=== PATIENT | male | born 1960 | race Caucasian/White ===

== ENCOUNTER 2017-04-03 16:57 | Inpatient (IN) | payer OTHER ==
[~2017-04-03] VITALS: Ht 175.3 cm; Wt 62.0 kg
[2017-04-03] MEDS ORDERED: ALBUT/IPRATROP 3MG/0.5MG NEB 3 ML VIAL INH ONE (17:15)
[2017-04-03 17:24] VITALS: PULSE 102; O2SAT 93
[2017-04-03 17:36] LABS: BASO % 0.1 %; BASO ABS # 0.01 K/uL (0-0.2); COMPLETE YES; EOS % 0.6 %; HEMATOCRIT 43.7 % (42-52); IG% 0.2 %; LYMPH % 4.4 %; LYMPH ABS # 0.38 K/uL (1.2-3.4); MEAN CELL VOLUME 89.5 fL (80-100); MEAN CORPUSCULAR HEMOGLOBIN 30.5 pg (25-34); MEAN CORPUSCULAR HGB CONC 34.1 g/dl (32-36); MEAN PLATELET VOLUME 9.2 fL (7.4-10.4); NEUT % 93.7 %; PLATELET COUNT 214 K/uL (130-400); RED BLOOD COUNT 4.88 M/uL (4.7-6.1); WHITE BLOOD COUNT 8.61 K/uL (4.8-10.8)
[2017-04-03] MEDS ORDERED: CICL160A INH (17:42)
[2017-04-03] MEDS ORDERED: SERT-234 PO (17:43)
[2017-04-03] MEDS ORDERED: VNTHFA/IN INH (17:48)
--- NOTE | 2017-04-03 17:49 | DIAGNOSTIC IMAGING REPORT ---
CHEST ONE VIEW PORTABLE HISTORY: 57 years-old Male EVALUATE RESPIRATORY DISTRESS.DYSPNEA acute respiratory distress COMPARISON: None available TECHNIQUE: AP view of the chest FINDINGS: Cardiac mediastinal and hilar silhouettes are within normal limits. No pneumothorax, pleural effusion, focal airspace consolidation or overt pulmonary edema. Mild biapical pleural-parenchymal scarring. Degenerative changes are seen within the shoulders and spine. IMPRESSION: No acute cardiopulmonary process. The above report was generated using voice recognition software. It may contain grammatical, syntax or spelling errors. Electronically signed by: Pramod Cherry M.D. 04/03/2017 5:48 PM Dictated Date/Time: 04/03/2017 5:47 PM
[2017-04-03 17:54] LABS: BUN/CREATININE RATIO 9.5 (10-20); CALCIUM 8.8 mg/dl (8.5-10.1); CREATININE 1.26 mg/dl (0.60-1.40); POTASSIUM 3.4 mmol/L (3.5-5.1)
[2017-04-03 17:57] LABS: ALB/GLOB RATIO 0.9 (0.9-2)
[2017-04-03] MEDS ORDERED: ALBUTEROL 0.083% NEBU SOLN 3 ML VIAL INH STA (19:35)
[2017-04-03] MEDS ORDERED: AZITHROMYCIN 250 MG TAB PO STA (19:39)
[2017-04-03] MEDS ORDERED: MAGNESIUM HYDROXIDE SUSP 30 ML UDC PO PRN (20:00)
[2017-04-03] MEDS ORDERED: ALBUTEROL HFA 8 GM INHALER INH PRN (20:00)
[2017-04-03] MEDS ORDERED: ACETAMINOPHEN 325 MG TAB PO PRN (20:00)
[2017-04-03] MEDS: ALBUT/IPRATROP 3MG/0.5MG NEB 3 ML VIAL INH SCH (20:00)
[2017-04-03] MEDS ORDERED: ALUMINUM/MAGNESIUM/SIMETH (MAALOX MAX) 30 ML UDC PO PRN (20:00)
[2017-04-03] MEDS ORDERED: ONDANSETRON INJ 2 MG/ML 2 ML VIAL IV PRN (20:00)
[2017-04-03] MEDS ORDERED: AZITHROMYCIN IV 500 MG in DEXTROSE 5% 250ML 250 ML IV ONE (20:00)
[2017-04-03] MEDS ORDERED: POLYETHYLENE (MIRALAX) 17 GM PACK PO PRN (20:00)
--- NOTE | 2017-04-03 20:01 | EMERGENCY ROOM VISIT NOTE ---
History Report prepared by Patricia: Jcarlos Perez Under the Supervision of: Dr. Charli Dunham D.O. First contact with patient: 17:06 Chief Complaint: SHORTNESS OF BREATH Stated Complaint: DIFF. BREATHING / [facility] History of Present Illness The patient is a 57 year old male who presents to the Emergency Room with complaints of constant shortness of breath for the past two days. The patient states that he got a cold two days ago, and he has a runny nose, an unproductive cough, and some chest pain from the coughing. He has a history of asthma, and he is not currently on any steroids. He denies any recent antibiotic use, history of blood clots, and any recent surgery. He is not a smoker. The patient states that he was given Solu-Medrol IV and 2 nebulizers prior to arrival. Pt denies headache, change in vision, fevers, chest pain, nausea, vomiting, diarrhea, pain with urination, and melena. Source of History: patient Onset: two days ago Position: other (global) Quality: other (shortness of breath) Timing: constant Associated Symptoms: + cough, + chest pain Note: Associated symptoms: Runny nose Review of Systems See HPI for pertinent positives & negatives. A total of 10 systems reviewed and were otherwise negative. Past Medical & Surgical Medical Problems: (1) Acute respiratory failure with hypoxia (2) Asthma (3) Asthma exacerbation Social History Smoking Status: Never Smoker Marital Status: single Housing Status: other (long-term) Occupation Status: other (prisoner) Current/Historical Medications Scheduled Ciclesonide (Alvesco), 1 PUFF INH BID Sertraline (Zoloft), 200 MG PO DAILY Scheduled PRN Albuterol Hfa (Ventolin Hfa), 2 PUFFS INH QID PRN for SOB/Wheezing Allergies Coded Allergies: Amoxicillin (Verified Allergy, Unknown, UNKNOWN, 04/03/17) Morphine (Verified Allergy, Unknown, UNKNOWN, 04/03/17) Uncoded Allergies: DEMEROL (Allergy, Unknown, UNKNOWN, 04/03/17) PENICILLIN (Allergy, Unknown, UNKNOWN, 04/03/17) Physical Exam Vital Signs Date Time Temp Pulse Resp B/P (MAP) Pulse Ox O2 Delivery O2 Flow Rate FiO2 04/03/17 18:45 Nasal Cannula 2.0 04/03/17 18:43 88 Room Air 04/03/17 18:25 125 20 110/65 94 Room Air 04/03/17 17:36 105 95 Nebulizer 10.0 04/03/17 17:35 88 Nebulizer 04/03/17 17:24 102 18 93 Room Air 04/03/17 17:22 Nebulizer 04/03/17 17:07 108 04/03/17 17:06 36.9 101 22 100/63 93 Room Air Physical Exam GENERAL: Sitting up in bed, dyspneic on conversation EYE EXAM: normal conjunctiva. OROPHARYNX: no exudate, no erythema, lips, buccal mucosa, and tongue normal and mucous membranes are moist NECK: supple, no nuchal rigidity, no adenopathy, non-tender LUNGS: Diffuse wheezing bilaterally. Normal chest wall mechanics HEART: no murmurs, S1 normal and S2 normal ABDOMEN: abdomen soft, non-tender, normo-active bowel sounds, no masses, no rebound or guarding. BACK: Back is symmetrical on inspection and there is no deformity, no midline tenderness, no CVA tenderness. SKIN: no rashes and no bruising UPPER EXTREMITIES: upper extremities are grossly normal. LOWER EXTREMITIES: No pitting edema. NEURO EXAM: Normal sensorium, cranial nerves II-XII grossly intact, normal speech, no gross weakness of arms, no gross weakness of legs. Gross sensation intact. Medical Decision & Procedures ER Provider Diagnostic Interpretation: Radiology results as stated below per my review and the radiologist's interpretation: CHEST ONE VIEW PORTABLE HISTORY: 57 years-old Male EVALUATE RESPIRATORY DISTRESS.DYSPNEA acute respiratory distress COMPARISON: None available TECHNIQUE: AP view of the chest FINDINGS: Cardiac mediastinal and hilar silhouettes are within normal limits. No pneumothorax, pleural effusion, focal airspace consolidation or overt pulmonary edema. Mild biapical pleural-parenchymal scarring. Degenerative changes are seen within the shoulders and spine. IMPRESSION: No acute cardiopulmonary process. The above report was generated using voice recognition software. It may contain grammatical, syntax or spelling errors. Electronically signed by: Pramod Cherry M.D. 04/03/2017 5:48 PM Dictated Date/Time: 04/03/2017 5:47 PM Laboratory Results 04/03/17 17:18 Red Blood Count 4.88, Mean Corpuscular Volume 89.5, Mean Corpuscular Hemoglobin 30.5, Mean Corpuscular Hemoglobin Concent 34.1, Mean Platelet Volume 9.2, Neutrophils (%) (Auto) 93.7, Lymphocytes (%) (Auto) 4.4, Monocytes (%) (Auto) 1.0, Eosinophils (%) (Auto) 0.6, Basophils (%) (Auto) 0.1, Neutrophils # (Auto) 8.06, Lymphocytes # (Auto) 0.38, Monocytes # (Auto) 0.09, Eosinophils # (Auto) 0.05, Basophils # (Auto) 0.01 04/03/17 17:18 Test 04/03/17 17:18 04/03/17 19:55 White Blood Count 8.61 K/uL (4.8-10.8) Red Blood Count 4.88 M/uL (4.7-6.1) Hemoglobin 14.9 g/dL (14.0-18.0) Hematocrit 43.7 % (42-52) Mean Corpuscular Volume 89.5 fL (80-100) Mean Corpuscular Hemoglobin 30.5 pg (25-34) Mean Corpuscular Hemoglobin Concent 34.1 g/dl (32-36) Platelet Count 214 K/uL (130-400) Mean Platelet Volume 9.2 fL (7.4-10.4) Neutrophils (%) (Auto) 93.7 % Lymphocytes (%) (Auto) 4.4 % Monocytes (%) (Auto) 1.0 % Eosinophils (%) (Auto) 0.6 % Basophils (%) (Auto) 0.1 % Neutrophils # (Auto) 8.06 K/uL (1.4-6.5) Lymphocytes # (Auto) 0.38 K/uL (1.2-3.4) Monocytes # (Auto) 0.09 K/uL (0.11-0.59) Eosinophils # (Auto) 0.05 K/uL (0-0.5) Basophils # (Auto) 0.01 K/uL (0-0.2) RDW Standard Deviation 41.9 fL (36.4-46.3) RDW Coefficient of Variation 12.9 % (11.5-14.5) Immature Granulocyte % (Auto) 0.2 % Immature Granulocyte # (Auto) 0.02 K/uL (0.00-0.02) Anion Gap 9.0 mmol/L (3-11) Est Creatinine Clear Calc Drug Dose 58.1 ml/min Estimated GFR () 73.9 Estimated GFR (Non- 63.8 BUN/Creatinine Ratio 9.5 (10-20) Calcium Level 8.8 mg/dl (8.5-10.1) Total Bilirubin 0.5 mg/dl (0.2-1) Aspartate Amino Transf (AST/SGOT) 14 U/L (15-37) Alanine Aminotransferase (ALT/SGPT) 19 U/L (12-78) Alkaline Phosphatase 98 U/L (45-117) Total Protein 8.0 gm/dl (6.4-8.2) Albumin 3.7 gm/dl (3.4-5.0) Globulin 4.3 gm/dl (2.5-4.0) Albumin/Globulin Ratio 0.9 (0.9-2) Laboratory results per my review. Medications Administered Medications (Trade) Dose Ordered Sig/Dalton Route Start Time Stop Time Status Last Admin Dose Admin Albuterol/ Ipratropium (Duoneb) 12 ml ONE ONCE INH 04/03/17 17:15 04/03/17 17:16 DC 04/03/17 17:22 12 ML Albuterol Sulfate (Ventolin 0.083% 2.5MG/3ML Neb) 2.5 mg NOW STAT INH 04/03/17 19:35 04/03/17 19:36 DC 04/03/17 19:39 2.5 MG Azithromycin (Zithromax Tab) 500 mg NOW STAT PO 04/03/17 19:39 04/03/17 19:40 DC 04/03/17 19:54 500 MG ECG Indication: SOB/dyspnea Rate (beats per minute): 96 Rhythm: sinus rhythm Findings: left axis deviation, other (normal intervals) ED Course ED COURSE: Vital signs were reviewed and showed hypoxia and tachycardia The patients medical record was reviewed The above diagnostic studies were performed and reviewed. ED treatments and interventions as stated above. 1706: The patient was evaluated in room A10. A complete history and physical examination was performed. 1715: DuoNeb 12ml INH 1815: I reevaluated the patient, and he was having decreased wheezing, and he is feeling slightly better. 1856: Upon reevaluation, the patient is hypoxic again, and he bumps up to 90% when put on 2L of oxygen. I discussed my findings with the patient and he understands and agrees with the treatment plan. Based on the patients age, coexisting illnesses, exam and lab findings the decision to treat as an inpatient was made. The patient remained stable while under my care. The patient will be evaluated for further management. 193: I reviewed the patient's case with Dr. Flanagan. He will evaluate the patient for further management. I ordered Albuterol Sulfate 2.5mg INH Medical Decision Differential diagnoses includes but is not limited to pneumonia, bronchitis, COPD/Asthma exacerbation, pneumothorax, pulmonary embolism, congestive heart failure, acute coronary syndrome Patient is a 57-year-old male who presents to ER for shortness of breath. Patient was brought in from the long-term. In the long-term years found to be hypoxic. He has a history of asthma. He is given 2 nebs and the long-term and one in route. He is given 125 Solu-Medrol via EMS. Upon arrival patient was given an hour-long treatment of 3 duo nebs. He was given additional albuterol. He was given oral azithromycin. He was still intermittently hypoxic in the mid 80s. He was put on 2 L nasal cannula. He was monitored closely. He was updated and admitted to internal medicine with asthma exacerbation and hypoxia. Heart rate was up in the 120s which I favor is secondary to the mid treatments. Medication Reconcilliation Current Medication List: was personally reviewed by me Blood Pressure Screening Patient's blood pressure: Elevated blood pressure Managed by the hospitalist Consults Consulting Physician: Dr. Flanagan I reviewed the patient's case with Dr. Flanagan. He will evaluate the patient for further management. Impression Primary Impression: Asthma exacerbation Additional Impression: Hypoxia Critical Care I have personally spent 35 minutes of critical care time in the direct management of this patient. This includes bedside care, interpretation of diagnostic studies, and testing, discussion with consultants, patient, and family members, and other required patient management activities. This 35 minutes is in excess of all separately billable procedures. Scribe Attestation The scribe's documentation has been prepared under my direction and personally reviewed by me in its entirety. I confirm that the note above accurately reflects all work, treatment, procedures, and medical decision making performed by me. Departure Information Dispostion Being Evaluated By Hospitalist Referrals Sandra KENNY (PCP) Patient Instructions [facility] Problem Qualifiers Primary Impression: Asthma exacerbation Asthma severity: severe Asthma persistence: unspecified Qualified Codes: J45.901 - Unspecified asthma with (acute) exacerbation
[2017-04-03 20:40] VITALS: BP 106/59; PULSE 105; TEMP 36.7; O2SAT 92
--- NOTE | 2017-04-03 21:03 | History and Physical ---
History & Physical Date & Time of Service: Apr 03, 2017 at 21:02 Chief Complaint: Acute Respiratory Failure With Hypoxia, Asthma Primary Care Physician: Sandra KENNY History of Present Illness Source: patient, hospital records This is a 57 yo m with a past medical history of asthma coming from [facility] for worsening dyspnea. The patient states that approx 2 days prior he started to suffer from mild cold like symptoms and a non productive cough. Overnight the patient had sudden worsening of his cough and dyspnea which was unresolved with the use of his rescue inhaler. He was given steroids and a duoneb and sent to the ED for evaluation. on admission the patient was in hypoxic respiratory failure which improved with oxygen administration. He was given another duoneb in the ED which improved his symptoms of chest tightness. He notes has had a history of "lung shut down" and in particular when he was a child. Since living in [place] he has only had two of these episodes in 8 years. He does take a daily INCS. Patient is a non smoker/ never smoker and father from an asthma exacerbation at 50. Past Medical/Surgical History Asthma Family History Asthma FATHER (passed at 50) Social History Smoking Status: Never Smoker Smokeless Tobacco Use: No Alcohol Use: none Drug Use: none Marital Status: single Housing status: other (fpc) Occupational Status: other (prisoner) Immunizations History of Influenza Vaccine: Unknown History of Tetanus Vaccine?: Unknown History of Pneumococcal: Unknown History of Hepatitis B Vaccine: Unknown Multi-Drug Resistant Organisms History of MDRO: No Allergies Coded Allergies: Amoxicillin (Verified Allergy, Unknown, UNKNOWN, 04/03/17) Meperidine (Verified Allergy, Unknown, ., 04/03/17) Morphine (Verified Allergy, Unknown, UNKNOWN, 04/03/17) Penicillins (Verified Allergy, Unknown, ., 04/03/17) Home Medications Scheduled Ciclesonide (Alvesco), 1 PUFF INH BID Sertraline (Zoloft), 200 MG PO DAILY Scheduled PRN Albuterol Hfa (Ventolin Hfa), 2 PUFFS INH QID PRN for SOB/Wheezing Review of Systems Constitutional: No fever, No chills, No sweats Eyes: No worsening of vision ENT: No hearing loss Respiratory: + cough, + shortness of breath, + dyspnea on exertion, + dyspnea at rest, No sputum, No wheezing, No hemoptysis Cardiovascular: + problem reported (chest tightness ), No chest pain Abdomen: No pain, No nausea, No vomiting, No diarrhea, No constipation Musculoskeletal: No joint pain, No muscle pain Genitourinary - Male: No hematuria, No dysuria Neurologic: No weakness, No numbness/tingling, No balance problems Psychiatric: No depression symptoms Endocrine: No fatigue Integumentary: No rash Physical Exam Vital Signs Date Time Temp Pulse Resp B/P (MAP) Pulse Ox O2 Delivery O2 Flow Rate FiO2 04/03/17 20:40 36.7 105 18 106/59 (75) 92 Nasal Cannula 2.0 04/03/17 20:29 36.7 103 20 114/65 94 Nasal Cannula 2.0 04/03/17 18:45 Nasal Cannula 2.0 04/03/17 18:43 88 Room Air 04/03/17 18:25 125 20 110/65 94 Room Air 04/03/17 17:36 105 95 Nebulizer 10.0 04/03/17 17:35 88 Nebulizer 04/03/17 17:24 102 18 93 Room Air 04/03/17 17:22 Nebulizer 04/03/17 17:07 108 04/03/17 17:06 36.9 101 22 100/63 93 Room Air General Appearance: + mild distress Head: normocephalic, atraumatic Eyes: normal inspection ENT: normal ENT inspection Neck: supple Respiratory/Chest: + respiratory distress (mild tachypnea), + decreased breath sounds (throughout, poor air movement) Cardiovascular: regular rate, rhythm, no murmur, normal peripheral pulses Abdomen/GI: normal bowel sounds, non tender, soft Back: normal inspection, no CVA tenderness Extremities/Musculoskelatal: no calf tenderness, no pedal edema, normal range of motion Neurologic/Psych: alert, normal mood/affect, oriented x 3 Skin: normal color, warm/dry, no rash Lymphatic: no adenopathy Diagnostics Laboratory Results Results Past 24 Hours Test 04/03/17 17:18 Range/Units White Blood Count 8.61 4.8-10.8 K/uL Red Blood Count 4.88 4.7-6.1 M/uL Hemoglobin 14.9 14.0-18.0 g/dL Hematocrit 43.7 42-52 % Mean Corpuscular Volume 89.5 80-100 fL Mean Corpuscular Hemoglobin 30.5 25-34 pg Mean Corpuscular Hemoglobin Concent 34.1 32-36 g/dl Platelet Count 214 130-400 K/uL Mean Platelet Volume 9.2 7.4-10.4 fL Neutrophils (%) (Auto) 93.7 % Lymphocytes (%) (Auto) 4.4 % Monocytes (%) (Auto) 1.0 % Eosinophils (%) (Auto) 0.6 % Basophils (%) (Auto) 0.1 % Neutrophils # (Auto) 8.06 1.4-6.5 K/uL Lymphocytes # (Auto) 0.38 1.2-3.4 K/uL Monocytes # (Auto) 0.09 0.11-0.59 K/uL Eosinophils # (Auto) 0.05 0-0.5 K/uL Basophils # (Auto) 0.01 0-0.2 K/uL RDW Standard Deviation 41.9 36.4-46.3 fL RDW Coefficient of Variation 12.9 11.5-14.5 % Immature Granulocyte % (Auto) 0.2 % Immature Granulocyte # (Auto) 0.02 0.00-0.02 K/uL Sodium Level 137 136-145 mmol/L Potassium Level 3.4 3.5-5.1 mmol/L Chloride Level 103 98-107 mmol/L Carbon Dioxide Level 25 21-32 mmol/L Anion Gap 9.0 3-11 mmol/L Blood Urea Nitrogen 12 7-18 mg/dl Creatinine 1.26 0.60-1.40 mg/dl Est Creatinine Clear Calc Drug Dose 58.1 ml/min Estimated GFR () 73.9 Estimated GFR (Non- 63.8 BUN/Creatinine Ratio 9.5 10-20 Random Glucose 162 70-99 mg/dl Calcium Level 8.8 8.5-10.1 mg/dl Total Bilirubin 0.5 0.2-1 mg/dl Aspartate Amino Transf (AST/SGOT) 14 15-37 U/L Alanine Aminotransferase (ALT/SGPT) 19 12-78 U/L Alkaline Phosphatase 98 45-117 U/L Total Protein 8.0 6.4-8.2 gm/dl Albumin 3.7 3.4-5.0 gm/dl Globulin 4.3 2.5-4.0 gm/dl Albumin/Globulin Ratio 0.9 0.9-2 Procalcitonin < 0.05 0-0.5 ng/ml Diagnostic Radiology CHEST ONE VIEW PORTABLE HISTORY: 57 years-old Male EVALUATE RESPIRATORY DISTRESS.DYSPNEA acute respiratory distress COMPARISON: None available TECHNIQUE: AP view of the chest FINDINGS: Cardiac mediastinal and hilar silhouettes are within normal limits. No pneumothorax, pleural effusion, focal airspace consolidation or overt pulmonary edema. Mild biapical pleural-parenchymal scarring. Degenerative changes are seen within the shoulders and spine. IMPRESSION: No acute cardiopulmonary process. Impression Assessment and Plan This is a 57 yo m that is suffering from acute hypoxic resp failure secondary to asthma exacerbation Acute hypoxic respiratory failure secondary to asthma exacerbation - med surg admission - O2 per nursing protocol - Methylpred 60 mg tid - Azithro received, defer to day team for continuation - procalcitonin ordered - Advair 250/50 initiated - duoneb qidr Hypokalemia - replete and recheck in am Depression - cont sertraline 20 mg DVT Prophylaxis - heparin bid Attending Addendum: I have physically seen and examined this patient, have directed the resident's medical activities, and agree with the H&P as noted above with the following exceptions as noted. The patient is awake, alert and oriented 3, well-developed and well-nourished , normocephalic and atraumatic, lying in bed and in no acute distress. HEENT--PERRL, EOMI, mucous membranes and oropharynx dry. Neck--supple, no JVD or bruits, thyroid normal, trachea midline, no adenopathy. Heart--normal S1 and S2, no extra beats, no murmurs, rubs or gallops. Lungs--wheezes bilaterally, no respiratory distress, no accessory muscle use. Abdomen--normal bowel sounds and soft, nontender and nondistended, no hernias or masses, no organomegaly. Extremities--no cyanosis, clubbing or edema. There are good distal pulses b/l. Dermatologic--normal skin turgor, normal color, warm and dry, no abnormal lymph nodes, no rash. Neurologic--cranial nerves II through XII grossly intact. Rheumatologic--normal range of motion. Psychiatric--normal affect. Assessment and Plan: Acute respiratory failure with hypoxia/asthma exacerbation-- Received Solu-Medrol 125 mg IV en route Continue Solu-Medrol 60 mg IV 3 times a day Duonebs every 4 hours while awake and every 2 hours when necessary. Nasal cannula oxygen titrate to keep pulse ox greater than or equal to 92% Azithromycin 500 mg IV Hyperglycemia-- Likely secondary to steroid treatment Check a hemoglobin A1c Hypokalemia-- Give oral supplement Retest in a.m. Depression-- Continue current dose of sertraline. Level of Care Med/Surg Advanced Directives Existing Advance Directive: No Existing Living Will: No Existing Power of Chef Broiler Or Fry: No Resuscitation Status FULL RESUSCITATION VTE Prophylaxis VTE Risk Assessment Done? Y/N: Yes Risk Level: Moderate Given or contraindicated: Unfractionated heparin SQ, SCD's Note Total Time: Critical Care 30 - 74 minutes Additional Copies To Sandra KENNY
[2017-04-03 21:34] LABS: PROTHROMBIN TIME (PATIENT) 11.2 SECONDS (9.0-12.0)
[2017-04-03] MEDS: METHYLPREDNISOLONE IV 60 MG in SYRINGE 0 ML IV SCH (21:38)
[2017-04-03 21:43] VITALS: BP 106/59; PULSE 105; TEMP 36.7; O2SAT 92; Ht 175.3 cm; Wt 62.0 kg
[2017-04-03] MEDS: FLUTICASONE/SALMETEROL 250/50 (ADVAIR) 14 PUFF/1 INHALER INH SCH (21:45)
[2017-04-03] MEDS: HEPARIN SOD 5000 UNIT/0.5 ML CARP SQ SCH (22:11)
[2017-04-03 22:53] VITALS: BP 106/64; PULSE 105; TEMP 36.8; O2SAT 94
[2017-04-04] VITALS (11 sets, daily range): BP systolic 102–112; BP diastolic 62–68; PULSE 83–102; TEMP 36.5–36.9; O2SAT 88–97
[2017-04-04] MEDS ORDERED: POTASSIUM CHLORIDE 20 MEQ TABCR PO STA (00:47)
[2017-04-04] MEDS: ALBUT/IPRATROP 3MG/0.5MG NEB 3 ML VIAL INH SCH ×5 (00:58→19:11)
[2017-04-04 06:41] LABS: BASO % 0.1 %; BASO ABS # 0.01 K/uL (0-0.2); COMPLETE YES; HEMATOCRIT 41.7 % (42-52); IG% 0.2 %; LYMPH ABS # 0.73 K/uL (1.2-3.4); MEAN CELL VOLUME 89.7 fL (80-100); MEAN CORPUSCULAR HGB CONC 34.5 g/dl (32-36); MEAN PLATELET VOLUME 9.6 fL (7.4-10.4); MONO % 3.1 %; NEUT % 92.6 %; PLATELET COUNT 217 K/uL (130-400); RED BLOOD COUNT 4.65 M/uL (4.7-6.1)
--- NOTE | 2017-04-04 07:38 | Family Medicine Progress Note ---
Progress Note Date of Service Apr 04, 2017. Subjective Pt evaluation today including: conversation w/ patient, physical exam, chart review, lab review, review of studies, conversation w/ store sales consultant, review of inpatient medication list Patient states he is feeling better now, particularly with the oxygen support. He has felt progressively more SOB since developing URTI symptoms on ( 4 days ago). He says that he has been compliant with his inhalers at [facility]. He states has had asthma from childhood, which has landed him in the hospital a few times, but nothing recently in the last few years, and usually secondary to a cold. He has never smoked, but states he has had significant second hand smoking exposure since childhood. He continues to have some dyspnea with conversation, and ongoing dry cough. His chest feels tight but better than previous. He otherwise denies fevers/chills, headaches, CP, palpitations, abdominal pain, lower extremity swelling or rashes. He is tolerating diet without nausea or vomiting. He has not tried ambulating. ROS is unremarkable except as noted above. Objective Vital Signs Date Time Temp Pulse Resp B/P (MAP) Pulse Ox O2 Delivery O2 Flow Rate FiO2 04/04/17 07:07 94 16 97 Nasal Cannula 4.0 04/04/17 01:16 102 18 93 Nasal Cannula 4.0 04/04/17 00:00 94 Nasal Cannula 2.0 04/03/17 22:53 36.8 105 20 106/64 (78) 94 Nasal Cannula 2.0 04/03/17 21:43 36.7 105 18 106/59 92 Nasal Cannula 2.0 04/03/17 20:40 36.7 105 18 106/59 (75) 92 Nasal Cannula 2.0 04/03/17 20:29 36.7 103 20 114/65 94 Nasal Cannula 2.0 04/03/17 18:45 Nasal Cannula 2.0 04/03/17 18:43 88 Room Air 04/03/17 18:25 125 20 110/65 94 Room Air 04/03/17 17:36 105 95 Nebulizer 10.0 04/03/17 17:35 88 Nebulizer 04/03/17 17:24 102 18 93 Room Air 04/03/17 17:22 Nebulizer 04/03/17 17:07 108 04/03/17 17:06 36.9 101 22 100/63 93 Room Air Physical Exam General Appearance: WD/WN, + mild distress, + pertinent finding (nasal cannula in situ) Eyes: normal inspection ENT: hearing grossly normal Neck: supple, no adenopathy Respiratory/Chest: no respiratory distress, no accessory muscle use Cardiovascular: regular rate, rhythm, no murmur Abdomen: normal bowel sounds, non tender, soft Extremities: normal inspection, no pedal edema, no calf tenderness Neurologic/Psychiatric: alert, normal mood/affect, oriented x 3 Skin: normal color, warm/dry, no rash Laboratory Results Results Past 24 Hours Test 04/03/17 17:18 04/04/17 00:00 04/04/17 06:21 Range/Units White Blood Count 8.61 18.20 4.8-10.8 K/uL Red Blood Count 4.88 4.65 4.7-6.1 M/uL Hemoglobin 14.9 14.4 14.0-18.0 g/dL Hematocrit 43.7 41.7 42-52 % Mean Corpuscular Volume 89.5 89.7 80-100 fL Mean Corpuscular Hemoglobin 30.5 31.0 25-34 pg Mean Corpuscular Hemoglobin Concent 34.1 34.5 32-36 g/dl Platelet Count 214 217 130-400 K/uL Mean Platelet Volume 9.2 9.6 7.4-10.4 fL Neutrophils (%) (Auto) 93.7 92.6 % Lymphocytes (%) (Auto) 4.4 4.0 % Monocytes (%) (Auto) 1.0 3.1 % Eosinophils (%) (Auto) 0.6 0.0 % Basophils (%) (Auto) 0.1 0.1 % Neutrophils # (Auto) 8.06 16.85 1.4-6.5 K/uL Lymphocytes # (Auto) 0.38 0.73 1.2-3.4 K/uL Monocytes # (Auto) 0.09 0.57 0.11-0.59 K/uL Eosinophils # (Auto) 0.05 0.00 0-0.5 K/uL Basophils # (Auto) 0.01 0.01 0-0.2 K/uL RDW Standard Deviation 41.9 42.8 36.4-46.3 fL RDW Coefficient of Variation 12.9 13.2 11.5-14.5 % Immature Granulocyte % (Auto) 0.2 0.2 % Immature Granulocyte # (Auto) 0.02 0.04 0.00-0.02 K/uL Prothrombin Time 11.2 9.0-12.0 SECONDS Prothromb Time International Ratio 1.0 0.9-1.1 Sodium Level 137 136 136-145 mmol/L Potassium Level 3.4 4.2 3.5-5.1 mmol/L Chloride Level 103 104 98-107 mmol/L Carbon Dioxide Level 25 27 21-32 mmol/L Anion Gap 9.0 5.0 3-11 mmol/L Blood Urea Nitrogen 12 15 7-18 mg/dl Creatinine 1.26 0.95 0.60-1.40 mg/dl Est Creatinine Clear Calc Drug Dose 58.1 77.0 ml/min Estimated GFR () 73.9 104.0 Estimated GFR (Non- 63.8 89.8 BUN/Creatinine Ratio 9.5 15.8 10-20 Random Glucose 162 134 70-99 mg/dl Calcium Level 8.8 8.8 8.5-10.1 mg/dl Total Bilirubin 0.5 0.2-1 mg/dl Aspartate Amino Transf (AST/SGOT) 14 15-37 U/L Alanine Aminotransferase (ALT/SGPT) 19 12-78 U/L Alkaline Phosphatase 98 45-117 U/L Total Protein 8.0 6.4-8.2 gm/dl Albumin 3.7 3.4-5.0 gm/dl Globulin 4.3 2.5-4.0 gm/dl Albumin/Globulin Ratio 0.9 0.9-2 Procalcitonin < 0.05 0-0.5 ng/ml Urine Color YELLOW Urine Appearance CLEAR CLEAR Urine pH 5.0 4.5-7.5 Urine Specific [employer] 1.027 1.000-1.030 Urine Protein NEG NEG Urine Glucose (UA) NEG NEG Urine Ketones TRACE NEG Urine Occult Blood NEG NEG Urine Nitrite NEG NEG Urine Bilirubin NEG NEG Urine Urobilinogen NEG NEG Urine Leukocyte Esterase NEG NEG Assessment and Plan This is a 57 yo m that is suffering from acute hypoxic resp failure secondary to asthma exacerbation Acute hypoxic respiratory failure secondary to asthma exacerbation - received albuterol neb prior to arrival and methylprednisone 125mg IV en route. Also received one dose of azithromycin in ED, but not continued as not likely COPD exacerbation (never smoker), afebrile, procalcitonin negative, and no evidence of PNA on CXR - O2 supplementation as needed keeping sats >92%, wean as tolerated - Methylprednisone 60mg TID today, with plans to reduce to prednisone 60mg daily starting tomorrow - DuoNeb q4hw + q2h PRN SOB/wheezing - Advair 250/50 initiated Hypokalemia - K+ 4.2 - now resolved - Trend BMP Depression - Continue sertraline 20mg DVT Prophylaxis - Heparin BID FULL CODE Resident Physician Supervision Note: I interviewed and examined the patient. Discussed with Dr. Gardiner and agree with findings and plan as documented in the note. Any exceptions or clarifications are listed here: None Documented By: Charli Maciel feeling better breathing better no fevers vitals noted nad lungs surprisingly cta b/l no r/r/w good effort asthma exacerbation - likely viral cause. not frequent w exacerbations, getting better quickly - IV steroids today, anticipate transition to PO tomorrow and likely discharge. since this is his first severe exac in years, unlikley to benefit from increase in baseline meds. otherwise as above Continued [facility] stay due to: abnormal vital signs Discharge planning: other ([facility]) Resident Tracking Resident Involvement: Resident Care Provided Care Provided: Adult Hospital Medicine
[2017-04-04 07:42] LABS: BUN/CREATININE RATIO 15.8 (10-20); CALCIUM 8.8 mg/dl (8.5-10.1); CREATININE 0.95 mg/dl (0.60-1.40); POTASSIUM 4.2 mmol/L (3.5-5.1)
[2017-04-04] MEDS: METHYLPREDNISOLONE IV 60 MG in SYRINGE 0 ML IV SCH ×3 (09:40→20:21)
[2017-04-04] MEDS: FLUTICASONE/SALMETEROL 250/50 (ADVAIR) 14 PUFF/1 INHALER INH SCH ×2 (09:40→20:20)
[2017-04-04] MEDS: SERTRALINE HCL 100 MG TAB PO SCH (09:41)
[2017-04-04] MEDS: HEPARIN SOD 5000 UNIT/0.5 ML CARP SQ SCH ×2 (09:54→21:14)
[2017-04-04 12:29] LABS: URINE APPEARANCE CLEAR (CLEAR); URINE BILIRUBIN NEG (NEG); URINE COLOR YELLOW; URINE NITRITE NEG (NEG); URINE SPECIFIC GRAVITY 1.027 (1.000-1.030); UROBILINOGEN NEG (NEG)
[2017-04-04 12:31] LABS: MANUAL MICROSCOPIC REQUIRED? NO; REVIEW REQ? NO
[2017-04-05] VITALS (8 sets, daily range): BP systolic 91–213; BP diastolic 50–68; PULSE 64–113; TEMP 36.4–36.9; O2SAT 90–99
[2017-04-05] MEDS: ALBUT/IPRATROP 3MG/0.5MG NEB 3 ML VIAL INH SCH ×4 (07:35→19:56)
[2017-04-05] MEDS: HEPARIN SOD 5000 UNIT/0.5 ML CARP SQ SCH ×2 (08:32→21:59)
[2017-04-05] MEDS: FLUTICASONE/SALMETEROL 250/50 (ADVAIR) 14 PUFF/1 INHALER INH SCH ×2 (08:33→21:59)
[2017-04-05] MEDS: SERTRALINE HCL 100 MG TAB PO SCH (08:33)
--- NOTE | 2017-04-05 16:37 | Family Medicine Progress Note ---
Progress Note Date of Service Apr 05, 2017. Subjective Pt evaluation today including: conversation w/ patient, physical exam, chart review, lab review The patient was seen and examined at bedside. On 2LNC when examined. Patient states that he feels much better. Asthma history reviewed with patient. It seems like his exacerbation was preceded by a viral URI. Patient is resting comfortably in bed. Handcuff in place on left arm. Police in the room. Eating and urinating well. Plan of care was described to the patient and all questions were answered. Constitutional: No fever, No chills, No sweats Eyes: No worsening of vision Respiratory: + cough, No sputum, No wheezing, No shortness of breath Cardiovascular: No chest pain Abdomen: No pain, No nausea, No vomiting, No diarrhea Male : No dysuria Objective Physical Exam General Appearance: WD/WN, no apparent distress Eyes: PERRL ENT: normal ENT inspection, hearing grossly normal, TMs normal, pharynx normal Neck: supple, no JVD Respiratory/Chest: chest non-tender, lungs clear, no respiratory distress, no accessory muscle use, + pertinent finding (patient has a slight end expiratory wheeze, decreased breath sounds throughout the lungs ) Cardiovascular: regular rate, rhythm, no edema, no gallop, no JVD, no murmur Abdomen: normal bowel sounds, non tender, soft, no organomegaly, no pulsatile mass Extremities: normal range of motion, non-tender, normal inspection, no pedal edema, no calf tenderness Neurologic/Psychiatric: 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 Patient is being treated with Duonebs and Advair and Steroids. Likely DC on oral steroids. We are also weaning off oxygen. Acute hypoxic respiratory failure secondary to asthma exacerbation from recent URI - Weaned off oxygen this PM. - IV Methylprednisone has been transitioned to 60mg Prednisone daily. - c/w DuoNeb q4hw + q2h PRN SOB/wheezing - c/w Advair 250/50 initiated Hypokalemia - K+ 4.2 - now resolved - Trend BMP Depression - Continue sertraline 20mg DVT Prophylaxis - Heparin BID Dispo: Med Surg, [facility], likely DC tomorrow. FULL CODE Resident Physician Supervision Note: I was present with the resident physician during the history and exam. I discussed the case with the resident and agree with the findings and plan as documented in the note. Upon exam, prolonged exp phase with end exp wheeze, although compared to notes from admission and prior exams, much improved. Wean oxygen today and potential d/c tomorrow. Documented By: Shun Houston Resident Involvement: Resident Care Provided Care Provided: Adult Hospital Medicine
[2017-04-06] MEDS ORDERED: PRED10TA PO ×2 (07:06→10:02)
--- NOTE | 2017-04-06 07:09 | Discharge Instructions ---
Discharge Instructions Date of Service Apr 06, 2017. Admission Reason for Admission: Acute Respiratory Failure With Hypoxia, Asthma Discharge Discharge Diagnosis / Problem: Asthma Execerbation Discharge Goals Goal(s): Decrease discomfort, Improve function, Increase independence, Improve disease control, Learn about illness Activity Recommendations Activity Limitations: per Instructions/Follow-up section . Instructions / Follow-Up Instructions / Follow-Up You were diagnosed with an Asthma Exacerbation. You are being discharged on a Prednisone Taper dose starting tomorrow with 50mg. The taper schedule is 50mg starting 04/07/2017, 50mg the day after, then 40mg for two days, then 30 mg for two days, then 20mg for two days and then 10mg for two days. Information on Prednisone and Asthma will be attached to your discharge please read this information carefully. Please resume your Albuterol and Ciclesonide Inhalers upon discharge. Albuterol should be taken as needed for coughing or wheezing and Ciclesonide should be taken twice daily regardless of your breathing status. Current Hospital Diet Patient's current hospital diet: Regular Diet Discharge Diet Recommended Diet: Regular Diet Pending Studies Studies pending at discharge: no Medical Emergencies . Who to Call and When: Medical Emergencies: If at any time you feel your situation is an emergency, please call 911 immediately. . Non-Emergent Contact Non-Emergency issues call your: Primary Care Provider . . "Provider Documentation" section prepared by Colten Andino. . VTE Core Measure Inpt VTE Proph given/why not?: Unfractionated heparin SQ, SCD's Resident Involvement: Resident Care Provided Care Provided: Adult Hospital Medicine
--- NOTE | 2017-04-06 07:12 | Discharge Summary ---
Discharge Summary Date of Service Apr 06, 2017. Discharge Summary Admission Date: Apr 03, 2017 at 19:55 Discharge Disposition: Acute care facility ([facility]) Principal Diagnosis: Asthma Exacerbation Immunizations: Have You Had Influenza Vaccine: Unknown History of Tetanus Vaccine?: Unknown History of Pneumococcal: Unknown History of Hepatitis B Vaccine: Unknown Consultations: CHEST ONE VIEW PORTABLE HISTORY: 57 years-old Male EVALUATE RESPIRATORY DISTRESS.DYSPNEA acute respiratory distress COMPARISON: None available TECHNIQUE: AP view of the chest FINDINGS: Cardiac mediastinal and hilar silhouettes are within normal limits. No pneumothorax, pleural effusion, focal airspace consolidation or overt pulmonary edema. Mild biapical pleural-parenchymal scarring. Degenerative changes are seen within the shoulders and spine. IMPRESSION: No acute cardiopulmonary process. Medication Reconciliation New Medications: Prednisone (Prednisone) 10 Mg Tab 10 MG PO DAILY for 10 Days, #30 TAB 5 Tabs starting 04/07/ x 2 days then 4 Tabs x 2 days then 3 Tabs x 2 days then 2 Tabs x 2 days then 1 Tab x 2 days Continued Medications: Albuterol Hfa (Ventolin Hfa) 200 Puffs/17130 Mcg Aers 2 PUFFS INH QID PRN for SOB/Wheezing, INHALER Ciclesonide (Alvesco) 160 Mcg/Act Aer 1 PUFF INH BID Sertraline (Zoloft) 100 Mg Tab 200 MG PO DAILY, TAB CRUSH Discharge Exam The patient was seen and examined at bedside. Doing well. No acute overnight events. Constitutional: No fever, No chills, No sweats Eyes: No worsening of vision Respiratory: + cough, No sputum, No wheezing, No shortness of breath Cardiovascular: No chest pain Abdomen: No pain, No nausea, No vomiting, No diarrhea Male : No dysuria Physical Exam General Appearance: WD/WN, no apparent distress Eyes: PERRL ENT: normal ENT inspection, hearing grossly normal, TMs normal, pharynx normal Neck: supple, no JVD Respiratory/Chest: chest non-tender, lungs clear, no respiratory distress, no accessory muscle use, + pertinent finding (lungs are improved from yesterday, no wheezing in any lung field) Cardiovascular: regular rate, rhythm, no edema, no gallop, no JVD, no murmur Abdomen: normal bowel sounds, non tender, soft, no organomegaly, no pulsatile mass Extremities: normal range of motion, non-tender, normal inspection, no pedal edema, no calf tenderness Neurologic/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 Patient was treated with Duonebs, Advair and IV Steroids. Patient improved to the point where he had sats of >92% on room air and was transitioned to PO Prednisone. Patient was discharged on a Prednisone taper of 50mg QAM starting 04/07/2017 and then a daily taper of 50mg, 40mg, 40mg, 30mg, 30mg, 20mg, 20mg, 10mg, 10mg. Patient was advised to resume his home inhalers on discharge as well. ( Albuterol QID PRN and Alvesco scheduled BID) Patient can resume Sertraline on discharge as well. Resident Physician Supervision Note: I was present with the resident physician during the history and exam. I discussed the case with the resident and agree with the findings and plan as documented in the note. Documented By: Shun Houston Total Time Spent: Less than 30 minutes This includes examination of the patient, discharge planning, medication reconciliation, and communication with other providers. Discharge Instructions Please refer to the electronic Patient Visit Report (Discharge Instructions) for additional information. Additional Copies To Sandra KENNY Resident Involvement: Resident Care Provided Care Provided: Adult Hospital Medicine
[2017-04-06] MEDS: ALBUT/IPRATROP 3MG/0.5MG NEB 3 ML VIAL INH SCH ×2 (07:24→11:29)
[2017-04-06 07:25] VITALS: PULSE 65; O2SAT 96
[2017-04-06 07:30] VITALS: BP 107/67; PULSE 67; TEMP 36.5; O2SAT 91; O2SAT 96
[2017-04-06 07:35] LABS: HEMATOCRIT 40.5 % (42-52); MEAN CELL VOLUME 91.6 fL (80-100); MEAN CORPUSCULAR HGB CONC 33.8 g/dl (32-36); MEAN PLATELET VOLUME 9.6 fL (7.4-10.4); PLATELET COUNT 188 K/uL (130-400); RED BLOOD COUNT 4.42 M/uL (4.7-6.1); WHITE BLOOD COUNT 16.01 K/uL (4.8-10.8)
[2017-04-06] MEDS: FLUTICASONE/SALMETEROL 250/50 (ADVAIR) 14 PUFF/1 INHALER INH SCH (08:08)
[2017-04-06] MEDS: SERTRALINE HCL 100 MG TAB PO SCH (08:09)
[2017-04-06 08:44] VITALS: BP 107/67; PULSE 67; TEMP 36.5; O2SAT 91
[2017-04-06] MEDS: HEPARIN SOD 5000 UNIT/0.5 ML CARP SQ SCH (09:32)
== END 2017-04-06 12:36 | DRG 202 ==
LOC: C.EDA 17:00 → C.MED 19:55 → ENRESERV 20:11
PROVIDERS: ADMIT Hospitalist; ATTEND Family Medicine
DX: J45.901 Unspecified asthma with (acute) exacerbation (principal); J96.01 Acute respiratory failure with hypoxia; E87.6 Hypokalemia; F32.9 Major depressive disorder, single episode, unspecified; R73.9 Hyperglycemia, unspecified

== ENCOUNTER 2018-05-16 15:07 | Inpatient (IN) | END 2018-05-19 11:30 | LOC: ED 15:07 → 2S 17:51 → SUATTDRO 17:51 → 2S 18:54 ==